=== PATIENT | male | born 1990 | race Caucasian/White ===

== ENCOUNTER 2016-12-11 05:02 | Emergency (ER) | payer SELFPAY ==
[2016-12-11 05:11] VITALS: BP 131/78; PULSE 78; TEMP 97.6; BMI 35.8
[2016-12-11] MEDS ORDERED: KETOROLAC TROMETHAMINE 10 MG TAB PO ONE (05:22)
--- NOTE | 2016-12-11 05:25 | EDPRACDOC ---
- General Information Chief Complaint: Flu-Like Symptoms Stated Complaint: VOMITING/ FEVER Time Seen by Provider: 12/11/16 05:22 Information Source: Patient Mode Of Arrival: Car Home Medications: Home Medications Promethazine [Phenergan] 25 mg PO Q6 PRN #10 tab 11/06/16 Oseltamivir Phosphate [Tamiflu] 75 mg PO BID #10 capsule 12/11/16 Promethazine [Phenergan] 25 mg PO Q8H PRN #30 tab 12/11/16 Allergies/Adverse Reactions: Allergies Allergy/AdvReac Type Severity Reaction Status Date / Time No Known Allergies Allergy Verified 12/11/16 05:07 - History of Present Illness Onset: 24HRS HPI: PATIENT STATES HE HAS BEEN EXPOSED TO FLU BY WHO WAS JUST DIAGNOSED AND BY MULTIPLE 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 FEVER AT HOME WITH GENERAL ACHING NONPRODUCTIVE COUGH AND NAUSEA OVER LAST 24 HOURS. Shortness of Breath: None Relevant History of: Reports: None Cough: Reports: Non-productive Rhinorrhea: Reports: Clear Fever Severity/Quality: Reports: subjective Ear Symptoms: Reports: None Associated Signs & Symptoms: Reports: Cough, Fever, Nasal Symptoms, Sore Throat , Nausea Oral Intake: Normal Urinary Output: Normal ED Past Medical History - History Reviewed Yes Nurses notes reviewed and agree except as marked Travel Outside of [place] in the Last 3 Months?: No - Patient Medical History Psychological History: Denies: Depression - Social Medical History Smoking Status: Never smoker ETOH: None Substance Abuse: None Lives With: Family Lives In: Home EDM Review of Systems - Review of Systems ROS Negative Except as Marked: Yes All systems reviewed and were negative except as marked Constitutional: Fever, Fatigue. negative: Chills, Loss of Appetite, Weakness Eyes: No Symptoms Reported. negative: Redness, Blurred Vision, Double Vision, Discharge, Pain, Light Sensitive, Photophobia Ears: No Symptoms Reported. negative: Pain, Hearing Loss, Drainage, Ear Pulling Throat: No Symptoms Reported. negative: Pain, Swelling Nose: No Symptoms Reported. negative: Congestion, Bleeding, Discharge, Injection, Swelling, Deformity, Ecchymosis, Tender, Abrasion, Laceration Mouth: No Symptoms Reported. negative: Pain, Drooling Respiratory: Cough. negative: Barky Cough, Brassy Cough, Hemoptysis, Shortness of Breath, Wheezing Cardiovascular: No Symptoms Reported. negative: Chest Pain, Palpitations, Syncope, Edema, Orthopnea, PND, Skin Mottling, Cyanosis Gastrointestinal: Nausea. negative: Constipation, Diarrhea, Formula Intolerance , Melena, Pain, Vomiting Genitourinary: No Symptoms Reported. negative: Dysuria, Hematuria, Frequency, Discharge, Bleeding, Testicular Pain, Neurological: No Symptoms Reported. negative: Headache, Dizziness, Seizure, Numbness, Weakness, Speech Difficulty, Gait Difficulty Musculoskeletal: No Symptoms Reported. negative: Neck, Chestwall, Ribs, Back, Shoulder, Arm, Elbow, Forearm, Wrist, Hand, Pelvis, Hip, Femur, Knee, Leg, Ankle , Foot Integumentary: No Symptoms Reported. negative: Itching, Rash, Bruising, Wound Allergic/Immunologic: No Symptoms Reported. negative: Hives, Itching Hematologic: No Symptoms Reported. negative: Lymphadenopathy, Easy Bruising, Easy Bleeding Endocrine: No Symptoms Reported. negative: Weight Gain, Weight Loss Psychiatric: No Symptoms Reported. negative: Anxiety, Depression, Hallucinations, Insomnia, Suicidal - Physical Exam Constitutional: Alert (Awake), No apparent distress Oriented to: Time, Person, Place Last recorded Vital Signs: Last Vital Signs Temp 97.6 F 12/11/16 05:07 Pulse 78 12/11/16 05:07 Resp 20 12/11/16 05:07 BP 131/78 12/11/16 05:07 Pulse Ox 98 12/11/16 05:07 Oxygen Pulse Oxygen Saturation 98 O2 Device Oxygen Flow Rate Fraction of Inspired Oxygen ( FIO2) - HEENT Head: Normal ( normocephalic) Eye Exam: Normal (PERRL, EOMI, Sclera white) Oropharynx: Normal (Pharynx:Moist without exudate,Gums-no swelling) Tympanic Membrane: Normal ENT EAC: Normal TMJ: Normal Nose: No Symptoms Reported (septum midline) Neck: Normal (FROM, trachea at midline) - Respiratory/Cardiovascular Respiratory: Normal - CTA (BBS clear to auscultation without adventitious sounds ) Cardiovascular: Normal (RRR without murmur, gallop or rub) - GI Auscultation: Normal (NABS) Palpation: Normal (Soft,No rebound or guarding, non distended) Tenderness: Non tender Galvez's Sign: Negative - Musculoskeletal Back: Normal (Non-Tender) Extremities: Normal (Normal tone, Pulses 2+ No cyanosis or edema, FROM) - Integumentary Skin: Normal, Warm, Dry Lymphatics: Normal (no adenopathy) - Neurologic Memory Impaired: Normal Motor Function: Normal (Normal tone, Pulses 2+ No cyanosis or edema, FROM) Cranial Nerve: Normal (CN II-X11 intact sensation, strength 5/5) Cerebellar: Normal Mood Description: Normal Perception: Normal Decision Time to Discharge: 05:44 - Departure Yes I personally saw and evaluated the patient. Disposition: Home Condition: Good Final Diagnosis: Influenza Instructions: Influenza (ED) Education/Counseling Given To: Patient Education/Counseling Given Regarding: Diagnosis, Treatment, Prognosis, Follow Up Referrals: None,No Provider [NonStaff] - One Week Zoe [place] MD [Staff Physician] - One Week Prescriptions: New Oseltamivir Phosphate [Tamiflu] 75 mg PO BID #10 capsule Promethazine [Phenergan] 25 mg PO Q8H PRN #30 tab PRN Reason: Nausea/Vomiting No Action Promethazine [Phenergan] 25 mg PO Q6 PRN #10 tab PRN Reason: Nausea/Vomiting
[2016-12-11] MEDS ORDERED: OSELTAMIVIR 6 MG/ML ORAL SUSP PO SCH (05:30)
--- NOTE | 2016-12-11 05:38 | DIRPT ---
CLINICAL DATA: Vomiting at work. Fever and cough EXAM: CHEST 2 VIEW COMPARISON: 08/21/2007 FINDINGS: Normal heart size and mediastinal contours. No acute infiltrate or edema. No effusion or pneumothorax. No acute osseous findings. IMPRESSION: Negative chest. Electronically Signed By: Christian Ramon M.D. On: 12/11/2016 05:35
[2016-12-11] MEDS ORDERED: OSELTAMIVIR PHOSPHATE 75 MG CAP PO ONE (06:00)
== END 2016-12-11 05:53 | disposition home or self-care (01) ==
LOC: ED 05:02
DX: J11.1 Influenza due to unidentified influenza virus with other respiratory manifestations (principal)
CPT/HCPCS: 71020; 99282; J3490